=== PATIENT | female | born 1990 | race Caucasian/White ===

== ENCOUNTER 2019-06-14 09:40 | Emergency (ER) | payer BC, SELFPAY ==
[2019-06-14 09:56] VITALS: BP 109/64; PULSE 101; RESP 18; TEMP 36.7; O2SAT 99
--- NOTE | 2019-06-14 10:32 | ED.URI ---
HPI - URI/Sore Throat General Chief Complaint: Upper Respiratory Infection Stated Complaint: SORE THROAT/BODY ACHES/HEADACHE/COUGH Time Seen by Provider: 06/14/19 10:25 Source: patient and RN notes reviewed Mode of arrival: ambulatory Limitations: no limitations History of Present Illness HPI Narrative: 28-year-old female presents with concern for body aches, fatigue, sore throat, dry cough, headache. Reports sore throat started 1 week ago, cough started yesterday. MD elicited complaint: cough and sore throat Related Data Home Medications Medication Instructions Recorded Confirmed alprazolam [Xanax] 0.25 mg PO TID PRN 06/14/19 06/14/19 tommzisjha-PK-DO-acetaminophen ml 06/14/19 [Vicks DayQuil-NyQuil Cold-Flu] Allergies Allergy/AdvReac Type Severity Reaction Status Date / Time PRESERVATIVES IN FOOD AND Allergy Unknown HIVES Uncoded 10/18/15 15:38 ALCOHOL Review of Systems Review of Systems: Narrative: CONSTITUTIONAL: Reports malaise, chills, sweats, tactile fever. EYES: Denies visual changes, redness, or discharge. ENT: Denies rhinorrhea, congestion, sinus pain, otalgia. Reports sore throat. CARDIOVASCULAR: Denies chest pain, palpitations, or edema. RESPIRATORY: Reports dry cough. Denies dyspnea. GASTROINTESTINAL: Denies abdominal pain, nausea, vomiting, diarrhea SKIN: Denies rash or itching. MUSCULOSKELETAL: Reports myalgia. NEUROLOGIC: Reports headache. All systems reviewed & are unremarkable except as noted in HPI and below PMFSH Comments At time of signature, agree with nursing past medical, surgical, social and family history. There is no relevant family history pertinent to the presenting complaint Exam Narrative: Exam Narrative: GENERAL: Well-appearing, well-nourished, and in no acute distress. HEAD: Normocephalic, atraumatic. EYES: PERRLA, conjunctivae clear, and EOMI. ENT: Nares clear, turbinates erythematous, clear discharge. Mucous membranes moist. TM pearly conroy with dull light reflex bilaterally; no tragal tenderness. Oropharynx mild erythematous without lesions. Tonsils not enlarged and without exudate, no drooling, no hoarseness, no trismus. NECK: Supple. No lymphadenopathy CHEST: Clear to auscultation, breath sounds equal. No wheezing, rhonchi, rales, or stridor. No respiratory distress, speaks in full sentences. HEART: Regular rate and rhythm. No murmur heard. Normal peripheral pulses. SKIN: Warm, dry, no rash. NEURO: Alert and oriented x3. PSYCH: Normal mood and affect Course Course Emergency Course: Patient is aware of diagnosis, understands and agrees to treatment plan. Anticipatory guidance given. Patient agrees to follow-up as directed and is aware of reasons to seek care at the emergency department. Portions of this record may have been created with voice recognition software Vital Signs Vital signs: Vital Signs Temperature 98.1 F 06/14/19 09:56 Pulse Rate 101 H 06/14/19 09:56 Respiratory Rate 18 06/14/19 09:56 Blood Pressure 109/64 06/14/19 09:56 Pulse Oximetry 99 06/14/19 09:56 Temperature 98.1 F 06/14/19 09:56 Pulse Rate 101 H 06/14/19 09:56 Respiratory Rate 18 06/14/19 09:56 Blood Pressure 109/64 06/14/19 09:56 Pulse Oximetry 99 06/14/19 09:56 Reviewed. MDM - URI/Sore Throat MDM Narrative Medical decision making narrative: Differential diagnosis considered: Strep pharyngitis, allergic rhinitis, upper respiratory tract infection, sinusitis, rhinosinusitis, nasopharyngitis. viral pharyngitis, otitis media, otitis externa, pneumonia, bronchitis, viral cough syndrome, viral syndrome, and influenza. Exam findings show no acute concerns or changes; patient is non-toxic appearing and is in no distress. Patient is appropriate for outpatient treatment and follow-up. Lab Data Attestation: I reviewed the patient's lab results. Labs: Influenza A Screen Negative Reference Range: Negative Influenza B Screen Negative
== END 2019-06-14 10:59 | disposition home or self-care (01) ==
PROVIDERS: Emergency Provider Nurse Practitioner; PCP Family Medicine Adolescent Medicine
DX: B34.9 Viral infection, unspecified (principal); F41.9 Anxiety disorder, unspecified
CPT/HCPCS: 87081; 87804; 87880; 99213; G0463

== ENCOUNTER 2019-06-26 08:40 | Emergency (ER) | payer BC, SELFPAY ==
[2019-06-26 08:50] VITALS: BP 113/64; PULSE 87; RESP 16; TEMP 36.6; O2SAT 99
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
== END 2019-06-26 09:39 | disposition home or self-care (01) ==
PROVIDERS: Emergency Provider Nurse Practitioner; PCP Family Medicine Adolescent Medicine
DX: S06.0X0A Concussion without loss of consciousness, initial encounter (principal); V87.7XXA Person injured in collision between other specified motor vehicles (traffic), initial encounter
CPT/HCPCS: 99213; G0463

== ENCOUNTER 2020-08-06 11:11 | Outpatient (CLI) | payer BC, SELFPAY ==
[2020-08-06 12:57] LABS: Rubella IgG Antibody 74.7 IU/ML
== END 2020-08-06 11:12 | disposition home or self-care (01) ==
PROVIDERS: PCP Family Medicine Adolescent Medicine; Visit Provider Obstetrics & Gynecology
DX: Z31.61 Procreative counseling and advice using natural family planning (principal)
CPT/HCPCS: 36415; 86762

== ENCOUNTER 2020-09-10 08:54 | Outpatient (CLI) | payer BC, SELFPAY ==
--- NOTE | ~2020-09-10 | US_ITS ---
EXAMINATION: US OB <=14 wk fetus w TV DATE: 09/10/2020 09:33 INDICATION: Gestational dating TECHNIQUE: Real-time transabdominal and transvaginal obstetric ultrasound. FINDINGS: Ultrasound dated 07/16/2013 The uterus measures 10.6 x 5.4 x 5.8 cm. There is an intrauterine gestational sac, with pole id entified. There is a small subchorionic hemorrhage. The crown rump length measures 1 cm, which correl ates with a estimated gestational age of 7 weeks 1 day. heart tones are identified measuring 126 BPM. IMPRESSION: 1. SL IUP with an EGA of 7 weeks, 1 days (EDC by current ultrasound of 04/28/2021). 2: Small subchorionic hemorrhage. Reviewed, dictated and finalized at location B. IMPRESSION: 1. SL IUP with an EGA of 7 weeks, 1 days (EDC by current ultrasound of 04/28/20). 2: Small subchorionic hemorrhage.
== END 2020-09-10 08:55 | disposition home or self-care (01) ==
PROVIDERS: PCP Family Medicine Adolescent Medicine; Visit Provider Obstetrics & Gynecology
DX: Z36.87 Encounter for antenatal screening for uncertain dates (principal); Z3A.01 Less than 8 weeks gestation of pregnancy; O46.91 Antepartum hemorrhage, unspecified, first trimester
CPT/HCPCS: 76801; 76817

== ENCOUNTER 2020-10-04 11:18 | Outpatient (CLI) | payer BC, SELFPAY ==
[2020-10-04 11:56] LABS: Basophils Absolute Auto 0.1 K/mm3 (0.0-0.1); Basophils Percent Auto 0.6 % (0.2-1.2); Eosinophils Absolute Auto 0.2 K/mm3 (0-0.3); Hematocrit 37.7 % (37.0-47.0); Hemoglobin 12.7 g/dL (12.0-15.0); Immature Granulocyte Absolute 0.02 K/mm3 (0.00-0.031); Immature Granulocyte Percent A 0.2 % (0-0.5); Lymphocytes Absolute Auto 1.91 K/mm3 (0.9-3.2); Lymphocytes Percent Auto 19.2 % (18.3-44.2); Mean Corpuscular HGB Conc 33.7 g/dl (32-36); Mean Corpuscular Hemoglobin 29.9 pg (26-34); Mean Corpuscular Volume 88.7 fl (80-100); Mean Platelet Volume 9.7 fl (7.4-10.4); Monocytes Absolute Auto 0.6 K/mm3 (0.1-0.6); Monocytes Percent Auto 5.6 % (2.6-8.5); Neutrophils Absolute Auto 7.2 K/mm3 (1.3-6.7); Neutrophils Percent Auto 72.4 % (45.5-73.1); Platelet Count Result 290 k/mm3 (150-375); Red Blood Count 4.25 M/mm3 (4.2-5.4); Red Cell Distribution Width 12.2 % (11.5-14.5)
[2020-10-04 12:00] LABS: Add Urine Microscopic? YES; Appearance Urine Clear (Clear); Bilirubin Urine Negative (Negative); Blood Urine Negative (Negative); Color Urine Yellow (Yellow); Glucose Urine UA Negative (Negative); Ketones Urine Negative (Negative); Leukocyte Esterase Ur Negative LEU/UL (NEGATIVE); Nitrate Urine Negative (Negative); Protein Urine Negative (Negative); RBC Urine 0-2 /hpf (0-2); Squamous Epithelial Cell Urine Moderate /hpf (Few); Urobilinogen Urine Negative mg/dL (<2.0)
[2020-10-04 12:47] LABS: HIV 1/2 Ab P24 Ag Result Negative (Negative)
[2020-10-04 13:14] LABS: Vitamin D 25 Hydroxy 52.3 ng/mL
[2020-10-04 13:27] LABS: Hepatitis B Surface Antigen Negative (Negative)
[2020-10-04 13:45] LABS: Hepatitis C Virus Antibody Negative (Negative)
[2020-10-05 08:45] LABS: Rapid Plasma Reagin Non-Reactive (NonReactive)
[2020-10-10 18:40] LABS: Hematocrit 38.1 % (35.0-45.0); Hemoglobin 12.9 g/dL (11.7-15.5); MCH 30.1 pg (27.0-33.0); Red Blood Cell Count 4.28 Mill/uL (3.80-5.10)
== END 2020-10-04 11:19 | disposition home or self-care (01) ==
LOC: ANHLAB 11:18
PROVIDERS: PCP Family Medicine Adolescent Medicine; Visit Provider Obstetrics & Gynecology
DX: Z34.91 Encounter for supervision of normal pregnancy, unspecified, first trimester (principal); Z3A.10 10 weeks gestation of pregnancy
CPT/HCPCS: 36415; 81001; 82306; 83021; 84443; 85025; 86592; 86703; 86787; 86803; 86850; 86900; 86901; 87086; 87340; G0432

== ENCOUNTER 2020-12-03 13:04 | Outpatient (CLI) | payer BC, SELFPAY ==
--- NOTE | ~2020-12-03 | US_ITS ---
US OB /maternal detail DATE: 12/03/2020 15:03 INDICATION: anatomy screen TECHNIQUE: Real-time imaging and Doppler analysis COMPARISON: 09/10/2020 obstetrical ultrasound FINDINGS: Live cohen intrauterine gestation, fetus in transverse lie. heart rate of 135 bpm . The placenta is posterior. There is a normal amount of amniotic fluid by subjective assessment. No cerebral ventriculomegaly. The cerebellum and nuchal fold appear normal. Lips and nose appear unremarkable. Spine appears unremarkable. 4 chamber heart. The ventricular outflow trac k appears normal. Three-vessel umbilical cord with normal insertion at abdominal wall. Fluid is demonstrated in the stomach and urinary bladder. kidneys appear normal, wi thout hydronephrosis. male external genitalia. Biparietal diameter 4.37 cm; 19 weeks 2 days estimated gestational age Head circumference 16.47 cm; 19 weeks 1 day Abdominal circumference 13.86 cm; 19 weeks 2 days Femur length 2.4 cm; 18 weeks 5 days Composite age by Hadlock formula is 19 weeks 1 day +/- 1 week 2 days; JEREMIAH: 04/28/2021 Estimated weight is 270 +/- 40.5 g. Head circumference/abdominal circumference 1.19 is within normal range of 1.09-1.26. Femur length/head circumference 17.23, within normal range of 16.20-18.51 IMPRESSION: Transverse lie Normal anatomy screen Estimated age is 19 weeks 1 day +/- 1 week 2 days; JEREMIAH: 04/28/2021 Reviewed, dictated and finalized at Location A. Reviewed, dictated and finalized at location A.
== END 2020-12-03 13:05 | disposition home or self-care (01) ==
LOC: ANHIMG 13:05
PROVIDERS: PCP Family Medicine Adolescent Medicine; Visit Provider Obstetrics & Gynecology
DX: Z34.92 Encounter for supervision of normal pregnancy, unspecified, second trimester (principal); Z3A.19 19 weeks gestation of pregnancy
CPT/HCPCS: 76805

== ENCOUNTER 2021-01-28 09:26 | Outpatient (RCR) | payer BC, SELFPAY ==
[2021-01-28 10:49] LABS: Basophils Percent Auto 0.5 % (0.2-1.2); Eosinophils Absolute Auto 0.1 K/mm3 (0-0.3); Eosinophils Percent Auto 1.2 % (0-4.4); Hematocrit 35.4 % (37.0-47.0); Hemoglobin 11.3 g/dL (12.0-15.0); Immature Granulocyte Absolute 0.06 K/mm3 (0.00-0.031); Immature Granulocyte Percent A 0.7 % (0-0.5); Lymphocytes Absolute Auto 1.64 K/mm3 (0.9-3.2); Lymphocytes Percent Auto 18.5 % (18.3-44.2); Mean Corpuscular HGB Conc 31.9 g/dl (32-36); Mean Corpuscular Hemoglobin 30.8 pg (26-34); Mean Corpuscular Volume 96.5 fl (80-100); Mean Platelet Volume 9.3 fl (7.4-10.4); Monocytes Absolute Auto 0.5 K/mm3 (0.1-0.6); Monocytes Percent Auto 5.9 % (2.6-8.5); Neutrophils Absolute Auto 6.5 K/mm3 (1.3-6.7); Neutrophils Percent Auto 73.2 % (45.5-73.1); Platelet Count Result 265 k/mm3 (150-375); Red Blood Count 3.67 M/mm3 (4.2-5.4); Red Cell Distribution Width 12.8 % (11.5-14.5); White Blood Count 8.9 K/mm3 (4.5-10.0)
[2021-01-28 10:59] LABS: Glucose 1 Hour PP 50gm Dose 103 mg/dL
[2021-01-28 11:41] LABS: HIV 1/2 Ab P24 Ag Result Negative (Negative)
[2021-01-28] MEDS: RHO(D) IMMUNE GLOBULIN 300 MCG/2 ML SYRINGE IM (14:16)
== END 2021-04-28 23:59 | disposition home or self-care (01) ==
LOC: ANHLAB 09:26
PROVIDERS: PCP Family Medicine Adolescent Medicine; Visit Provider Obstetrics & Gynecology
DX: Z29.13 Encounter for prophylactic Rho(D) immune globulin (principal); O36.0190 Maternal care for anti-D [Rh] antibodies, unspecified trimester, not applicable or unspecified; Z11.4 Encounter for screening for human immunodeficiency virus [HIV]; Z3A.00 Weeks of gestation of pregnancy not specified
CPT/HCPCS: 36415; 82947; 85025; 85461; 86703; 90384; 96372; G0432; J2790

== ENCOUNTER 2021-04-19 13:31 | Outpatient (RCR) | payer BC, SELFPAY ==
[2021-04-19 14:08] VITALS: BP 127/74; PULSE 103
== END 2021-05-26 09:45 | disposition home or self-care (01) ==
LOC: ANHOBOP 13:31
PROVIDERS: PCP Family Medicine Adolescent Medicine; Visit Provider Student in an Organized Health Care Education/Training Program
DX: O36.8330 Maternal care for abnormalities of the fetal heart rate or rhythm, third trimester, not applicable or unspecified (principal); Z3A.38 38 weeks gestation of pregnancy
CPT/HCPCS: 59025

== ENCOUNTER 2021-04-25 04:39 | Inpatient (IN) | payer BC, SELFPAY ==
[2021-04-25] VITALS (114 sets, daily range): BP systolic 79–148; BP diastolic 52–123; PULSE 62–283; RESP 18; TEMP 36.4–37.6; O2SAT 98–100; BMI 32.3
[2021-04-25] MEDS: AMPICILLIN 2 GM/NS 100 ML 2 GM/100 ML BAG IVPB (05:00)
[2021-04-25] MEDS: LACTATED RINGERS 1,000 ML 125 ML IV CONT ×4 (05:00→18:26)
[2021-04-25 05:53] LABS: Basophils Absolute Auto 0.1 K/mm3 (0.0-0.1); Basophils Percent Auto 0.5 % (0.2-1.2); Eosinophils Absolute Auto 0.2 K/mm3 (0-0.3); Hematocrit 39.2 % (37.0-47.0); Hemoglobin 13.3 g/dL (12.0-15.0); Immature Granulocyte Absolute 0.06 K/mm3 (0.00-0.031); Immature Granulocyte Percent A 0.7 % (0-0.5); Lymphocytes Absolute Auto 2.13 K/mm3 (0.9-3.2); Lymphocytes Percent Auto 23.3 % (18.3-44.2); Mean Corpuscular HGB Conc 33.9 g/dl (32-36); Mean Corpuscular Hemoglobin 31.5 pg (26-34); Mean Corpuscular Volume 92.9 fl (80-100); Monocytes Absolute Auto 0.6 K/mm3 (0.1-0.6); Neutrophils Absolute Auto 6.1 K/mm3 (1.3-6.7); Neutrophils Percent Auto 66.5 % (45.5-73.1); Platelet Count Result 232 k/mm3 (150-375); Red Blood Count 4.22 M/mm3 (4.2-5.4); Red Cell Distribution Width 13.5 % (11.5-14.5); White Blood Count 9.1 K/mm3 (4.5-10.0)
--- NOTE | 2021-04-25 06:21 | LDADM ---
This patient, Gabbie Orlando, was admitted to Labor/Delivery/Recovery 107 on 04/25/21 at 04:39. Plans for labor, pain management and were discussed with patient. Patient/family oriented to hospital policies and general routines including ID bracelet, bed and alarms, visiting hours, pain management, procedures, bathroom and other care routines, personal items, smoking policy, room service/diet and guest tray routines, infant security routines, and visiting hours. Patient/Family are encouraged to report perceived risks to care and to ask questions if they do not understand what they are told or what they should do. See OBIX for further documentation.
[2021-04-25] MEDS: OXYTOCIN 30 UNITS/NS 500 ML 30 UNITS/500 ML BAG 6 UNITS IV CONT (06:42)
[2021-04-25] MEDS: AMPICILLIN 1 GM/NS 50 ML 1 GM/50 ML BAG IVPB ×3 (09:42→18:07)
[2021-04-25 10:25] LABS: Rapid Plasma Reagin Non-Reactive (NonReactive)
--- NOTE | 2021-04-25 11:57 | WPDOBADMIT ---
Obstetrics - Admit Note Admission Note: record reviewed. No pertinent additions to the history and/or any subsequent changes in the physical findings that are not consistent with the expected course of the were found. Additions to the history and/or subsequent changes in the physical findings follow. G1 at 39+4 with leaking fluid starting at 0352 today, +SROM on evaluation. Cervix 0.5 cm. GBS +. Pitocin and antibiotics started early this morning so continue both. Fetus reassuring.
[2021-04-25] MEDS: fentaNYL CITRATE INJ (*CRX) 100 MCG/2 ML VIAL IV PUSH ×2 (13:29→14:46)
--- NOTE | 2021-04-25 15:55 | WPDANESEPP ---
Anes - Eval Pre Procedure Procedure: labor epidural Date/Time: 04/25/21 15:55 Surgeon: urbano Pre Op Diagnosis: Leaking Patient Data Age: 30 Gender: F Height: 1.65 m Weight: 88 kg Last Vital Signs Temp 36.8 C 04/25/21 12:30 Pulse 84 04/25/21 15:46 BP 139/82 04/25/21 15:46 Allergies Allergy/AdvReac Type Severity Reaction Status Date / Time PRESERVATIVES IN FOOD AND Allergy Unknown HIVES Uncoded 12/31/20 08:55 ALCOHOL Home Medications Medication Instructions Recorded Confirmed Type prenat.vits,devi,qke-zevj-xwheq 1 tablet PO DAILY 08/27/20 04/06/21 History Laboratory Tests 04/25/21 04/25/21 04/25/21 04:53 04:53 04:53 WBC 9.1 K/mm3 K/mm3 (4.5-10.0) RBC 4.22 M/mm3 M/mm3 (4.2-5.4) Hgb 13.3 g/dL g/dL (12.0-15.0) Hct 39.2 % % (37.0-47.0) MCV 92.9 fl fl (80-100) MCH 31.5 pg pg (26-34) MCHC 33.9 g/dl g/dl (32-36) RDW 13.5 % % (11.5-14.5) Plt Count 232 k/mm3 k/mm3 (150-375) MPV 11.0 fl H fl (7.4-10.4) Immature Gran % (Auto) 0.7 % H % (0-0.5) Neut % (Auto) 66.5 % % (45.5-73.1) Lymph % (Auto) 23.3 % % (18.3-44.2) Worth % (Auto) 7.0 % % (2.6-8.5) Eos % (Auto) 2.0 % % (0-4.4) Baso % (Auto) 0.5 % % (0.2-1.2) Lymph # (Auto) 2.13 K/mm3 K/mm3 (0.9-3.2) Worth # (Auto) 0.6 K/mm3 K/mm3 (0.1-0.6) Eos # (Auto) 0.2 K/mm3 K/mm3 (0-0.3) Baso # (Auto) 0.1 K/mm3 K/mm3 (0.0-0.1) Abs Immat Gran (auto) 0.06 K/mm3 H K/mm3 (0.00-0.031) Absolute Neuts (auto) 6.1 K/mm3 K/mm3 (1.3-6.7) Absolute Nucleated RBC 0.0 K/mm3 K/mm3 (0.0-0.012) Nucleated RBC % 0.0 % % (0.0-0.2) RPR Non-reactive (NonReactive) Blood Type A Negative Antibody Screen Negative Patient hx anesthesia problems: none Family hx anesthesia problems: none Results Review: All pre-operative results and documents have been reviewed as part of the pre-operative evaluation. [facility] Past Medical History Medical History Anxiety IBS (irritable bowel syndrome) Surgical History Surgical History History of hysteroscopy Family History Family History Father Hypertension Multiple sclerosis Mother Hypertension Heart problem Sibling Asthma Other No active medical problems Social History Social History (Updated 04/19/21 @ 12:51 by Richa Cobb MA) Smoking status: Never smoker Alcohol intake: former Drinks per week: 3 Alcohol use details: Not since Substance use: never Gender identity (if verbalized by the patient): Female Spiritual care concerns: No Exam Day of Procedure 04/25/21 15:55
--- NOTE | 2021-04-25 19:24 | PM.OBPRVD ---
OB - Delivery Note Procedure Delivery date: 04/25/21 Procedure: events: Labor Augmentation Intrapartal events: None Induction method: none Delivery augmentation: pitocin Delivery monitor: external FHT and external uterine Route of delivery: Laceration Description: Perineal - 2nd Degree and Vaginal - 2nd Degree (right sidewall) Delivery repair: vicryl (2-0) Specimen: No Quantitative Blood Loss (ml): 463 Anesthesia type: Epidural Disposition: floor Baby Date of : 04/25/21 Time of : 18:58 Weeks of gestation at delivery: 39 gender: Male Weight (pounds): 7 Weight (ounces): 10 presentation: vertex position: Right Occiput Anterior Placenta delivery description: Spontaneous cord vessel description: 3 Vessels and Clamped/Cut score one minute: 8 score five minutes: 9
[2021-04-25] MEDS: OXYTOCIN 30 UNITS/NS 500 ML 30 UNITS/500 ML BAG 125 UNITS IV CONT (19:30)
[2021-04-25] MEDS: WITCH HAZEL 40 PADS 1 PAD TOPICAL (21:53)
[2021-04-25] MEDS: BENZOCAINE 20% AER SPR (*SP) 56 GM CAN 1 SPRAY TOPICAL (21:53)
[2021-04-25] MEDS: IBUPROFEN 600 MG TABLET PO (21:53)
--- NOTE | 2021-04-25 22:14 | PC.NURSE ---
Patient transferred to post room # 282 via wheelchair. Support person present. Oriented to unit, room, information board, rooming in, admission packet and security measures. Patient verbalizes understanding.
[2021-04-26 02:45] VITALS: BP 98/66; PULSE 91; RESP 16; TEMP 35.8; O2SAT 98
[2021-04-26] MEDS: IBUPROFEN 600 MG TABLET PO ×3 (05:37→20:39)
[2021-04-26 05:58] LABS: Hematocrit 33.6 % (37.0-47.0); Hemoglobin 11.6 g/dL (12.0-15.0)
--- NOTE | 2021-04-26 07:24 | WPDANLDPN2 ---
Anes-Prog Note L&D Date/Time: 04/26/21 07:24 Comfortable throughout: labor and delivery Neuraxial method: epidural Epidural/Spinal procedure site: clean & non-tender Neuro status: Neuro function grossly intact. Cardiovascular status: normal Respiratory status: normal Airway patency: baseline Mental status: baseline Post-Op hydration status: normal Vital Signs: Last Vital Signs Temp 35.8 C L 04/26/21 02:45 Pulse 91 04/26/21 02:45 Resp 16 04/26/21 02:45 BP 98/66 L 04/26/21 02:45 Pulse Ox 98 04/26/21 02:45 Pain score (VAS): 0 I/O: Intake & Output 04/25/21 04/25/21 04/26/21 15:59 23:59 07:59 Intake Total 1100 2550 500 Output Total 268 Balance 1100 2282 500 Post-procedural complaints: none Patient feedback: Patient satisfied with anesthetic care.
[2021-04-26 07:45] VITALS: BP 114/70; PULSE 86; RESP 16; TEMP 36.8; O2SAT 99
--- NOTE | 2021-04-26 08:23 | PM.OBPNVD ---
OB - PN: Subj Subjective Date/time seen: 04/26/21 08:23 Patient comments: no complaints, pain well controlled and other (Lochia similar to menses) [place] baby status: doing well OB - PN: Obj Data Labs CBC & Chem 7: 04/26/21 05:11 Labs: Laboratory Results - last 24 hr 04/25/21 04/26/21 04:53 05:11 Hgb 11.6 L Hct 33.6 L RPR Non-reactive OB - PN A/P Plan day: 1 (s/p vaginal delivery, doing well) Plan: routine care Time Spent With Patient Time: Total time spent is greater than 50% in coordination of care (as documented) at patient's floor/unit and/or counseling patient: Exam Const: General: no acute distress GI: Inspection: other (Fundus firm and nontender at umbilicus) GI Palp: Yes Soft to palpation and No Tenderness to palpation present (GI) Extrem: General: no edema
--- NOTE | 2021-04-26 09:30 | PC.NURSE ---
Mother called out for assist with feeding, reporting has been eagerly feeding and now sleepy. Infant is able to freely thrust tongue past gum ridge and flange both lips. Skin is intact on both nipples, no redness and bruising noted. Reviewed infant feeding cues, frequencies, duration of feedings, feeding elimination flow sheet, and signs of adequate intake. Demonstrated stimulation techniques to wake infant for feeding. Assisted with infant to breast. Reviewed positioning/alignment in cross cradle, holding breast in ?U? hold and guided asymmetrical latch on. Reviewed rational for each. Several attempts before infant able to latch correctly within a few attempts. nursed eagerly with steady draws and occasional swallowing followed with long pausing noted. Reviewed signs of a correct latch, effective nursing and suck swallow ratio. Suggested mother stimulate while feeding to increase stimulation for milk supply, for increased intake and to assist with maintaining deep latch. . Infant would slip to shallow latch causing tenderness. Demonstrated how to adjust latch more deeply while feeding as needed. Mother reports she can feel the difference in latch with no tenderness. Nipple care reviewed of lanolin after feedings, warm compresses as needed. Instructed mother to call out for RN assistance if she is unable to latch infant for feeding or she has discomfort with nursing. Instructed feeding should be initiated three hours from start of last feeding or if feeding cues are noted before. Mother voiced understanding of information shared.
[2021-04-26] MEDS: ACETAMINOPHEN 325 MG TABLET 650 MG PO ×2 (10:24→17:27)
[2021-04-26] MEDS: MULTIVIT/MIN/PREN/FOL AC/IRON TABLET 1 TAB PO (10:25)
[2021-04-26] MEDS: DOCUSATE SODIUM 100 MG CAPSULE PO (10:25)
--- NOTE | 2021-04-26 11:00 | PC.NURSE ---
Mother called out for assist with feeding. Assisted with to breast. Reviewed positioning/alignment in cross cradle, holding breast in ?U? hold and guided asymmetrical latch on. Reviewed rational for each. able to latch correctly within a few attempts. Infant remains sleepy with no suckling noted. Attempt for 20 minutes. Advised to skin to skin and attempt again in 10 minutes.
--- NOTE | 2021-04-26 11:30 | PC.NURSE ---
Mother called out for assist with feeding. Assisted with to breast. Reviewed positioning/alignment in cross cradle, holding breast in ?U? hold and guided asymmetrical latch on. Reviewed rational for each. able to latch correctly within a few attempts. Infant nursed eagerly with steady draws and occasional swallowing noted, some pausing noted. Reviewed signs of a correct latch, effective nursing and suck swallow ratio. Suggested mother stimulate while feeding to increase stimulation for milk supply, for increased intake and to assist with maintaining deep latch. Infant was able to maintain latch without discomfort to mother. Demonstrated how to adjust latch more deeply while feeding as needed. Instructed mother to call out for RN assistance if she is unable to latch infant for feeding or she has discomfort with nursing. Instructed feeding should be initiated three hours from start of last feeding or if feeding cues are noted before. Mother voiced understanding of information shared.
[2021-04-26 12:13] VITALS: BP 118/78; PULSE 78; RESP 16; TEMP 36.6; O2SAT 98
[2021-04-26 17:18] VITALS: BP 118/71; PULSE 87; RESP 14; TEMP 36.4; O2SAT 98
[2021-04-26 20:30] VITALS: BP 122/76; PULSE 79; RESP 16; TEMP 36.4; O2SAT 96
[2021-04-27] MEDS: ACETAMINOPHEN 325 MG TABLET 650 MG PO ×2 (00:46→10:23)
[2021-04-27] MEDS: IBUPROFEN 600 MG TABLET PO ×2 (05:31→14:03)
--- NOTE | 2021-04-27 08:23 | PM.OBPNVD ---
OB - PN: Subj Subjective Date/time seen: 04/27/21 08:23 Patient comments: no complaints, pain well controlled and other (Lochia similar to menses) [place] baby status: doing well OB - PN: Obj Data Labs CBC & Chem 7: 04/26/21 05:11 OB - PN A/P Plan day: 2 (s/p vaginal delivery, doing well) Plan: routine care, discharge home and other (Follow up in office in 4 weeks) Time Spent With Patient Time: Total time spent is greater than 50% in coordination of care (as documented) at patient's floor/unit and/or counseling patient: Exam Const: General: no acute distress GI: Inspection: other (Fundus firm and nontender below umbilicus) GI Palp: Yes Soft to palpation and No Tenderness to palpation present (GI) Extrem: General: no edema
--- NOTE | 2021-04-27 08:24 | PM.OBDSVD ---
DS: Admitting Diagnosis Discharge Date 04/27/2021 Admitting Diagnosis Full term ruptured membranes DS: Discharge Diagnosis Discharge Diagnosis (1) (normal spontaneous vaginal delivery): Code(s): O80 - Encounter for full-term uncomplicated delivery Status: Acute OB - DS: Summary OB Procedures : None OB Procedures Intrapartum: Spontaneous Vag Delivery OB Procedures: : None Peripartum Data Infant Delivery Method: Natural Vaginal Laceration Description: Perineal - 2nd Degree and Vaginal - 2nd Degree complications: none Status at Discharge Functional status at discharge: independent ambulation Overall status at discharge: patient is progressing back to baseline Time Spent with Patient Time attestation: Total time spent providing and/or coordinating discharge services: Time spent: Less than 30 minutes Discharge Plan Discharge Attending physician on discharge: Carolina Mcdonald Discharging Clinician: Carolina Mcdonald Patient Disposition: Home, Self-Care Activity: may shower and pelvic rest Diet: as tolerated Patient Instructions: Antibiotic Form Stand Alone Forms: General Discharge Information Follow-up/Referrals: Carolina Mcdonald MD [Physician] - 4 Weeks Discharge Medications: New ibuprofen 600 mg Tablet 600 mg PO Q6H PRN (Reason: Cramping) Qty: 60 RF: 0 Continued prenat.vits,devi,gge-ftnf-evqlw Tablet 1 tablet PO DAILY RF: 0 Date of admission: 04/25/21 04:39 Primary Care Provider: Romario Westbrook Admitting Provider: Carolina Mcdonald Attending physician on admission: Carolina Mcdonald Condition: Stable
[2021-04-27 08:30] VITALS: BP 117/68; PULSE 88; RESP 18; TEMP 37.5; O2SAT 98
--- NOTE | 2021-04-27 09:30 | PC.NURSE ---
Consult with pt., observed mother is able to independently latch with appropriate positioning/alignment. Infant eagerly latches on first attempt with long rhythmical draws and frequent swallowing noted. She denies any nipple discomfort, is feeding as required and waking infant to feed if needed. Infant has had at least 8 effective feedings in the past 24 hours, and is currently meeting outcomes for weight, output, jaundice and feeding frequencies. Mother states she feels confident to continue effective at home. Reviewed transition to breast milk, signs of adequate intake, and engorgement/relief. Instructed to call ICP if intake/output less than required. Reviewed regular medications mother is taking. Information provided per Miriam. Reviewed community resources on the [facility] website and in the Mom/Baby guide. Information on outpatient services provided. Mother has no further questions at this time. Instructed feeding should be initiated three hours from start of last feeding or if feeding cues are noted before until seen by ICP. Mother voiced understanding of information shared.
[2021-04-27] MEDS: MULTIVIT/MIN/PREN/FOL AC/IRON TABLET 1 TAB PO (10:23)
--- NOTE | 2021-04-27 18:42 | PC.NURSE ---
0800 Patient viewed the discharge video Mother & Baby Care, The First Two Weeks . Patient was given the opportunity and encouraged to ask questions. Patient verbalized understanding of information shared and has been given the mother/baby guide for home reference.
[2021-04-28 10:34] VITALS: BP 115/75; PULSE 89; RESP 18; TEMP 37.2; O2SAT 100
== END 2021-04-27 15:38 | disposition home or self-care (01) | DRG 807 ==
LOC: ANHLDR 05:18 → ANHOB2 22:58
PROVIDERS: Admitting Provider Obstetrics & Gynecology; PCP Family Medicine Adolescent Medicine; Visit Provider Obstetrics & Gynecology
DX: O99.824 Streptococcus B carrier state complicating childbirth (principal); Z37.0 Single live birth; O70.1 Second degree perineal laceration during delivery; O76 Abnormality in fetal heart rate and rhythm complicating labor and delivery; Z3A.39 39 weeks gestation of pregnancy
CPT/HCPCS: 36415; 84112; 85014; 85018; 85025; 86592; 86850; 86900; 86901; A9270; J0290; J2590; J2795; J3010; J7120